=== PATIENT | female | born 1990 | race Caucasian/White ===

== ENCOUNTER → 2024-08-15 10:51 | Outpatient (REF) | payer OTHER, SELFPAY | LOC: PNTC 10:51 | PROVIDERS: ATTENDING PHYSICIAN Student in an Organized Health Care Education/Training Program | DX: O36.8190 Decreased fetal movements, unspecified trimester, not applicable or unspecified (principal) | CPT/HCPCS: 59025; 76815 ==

== ENCOUNTER → 2024-09-13 10:25 | Outpatient (REF) | payer OTHER, SELFPAY | LOC: REG 10:25 | PROVIDERS: ATTENDING PHYSICIAN Obstetrics & Gynecology | DX: Z01.812 Encounter for preprocedural laboratory examination (principal) | CPT/HCPCS: 36415; 86850; 86900; 86901 ==

== ENCOUNTER 2024-09-29 23:31 | Inpatient (IN) | payer OTHER, SELFPAY ==
[2024-09-29 23:52] VITALS: BP 138/77; BMI 33.7
[2024-09-30 00:52] LABS: ALT (SGPT) 30 U/L (0-35); AST (SGOT) 45 U/L (14-36); Albumin 3.7 g/dl (3.5-5.0); Alkaline Phosphatase 177 U/L (38-126); Blood Urea Nitrogen 18 mg/dl (7-17); Calcium 9.7 mg/dl (8.4-10.2); Carbon Dioxide 19 mmol/L (22-30); Chloride 107 mmol/L (98-107); Estimated Creatinine Clearance 93 ml/min; Glucose 100 mg/dl (70-99); Potassium 4.1 mmol/L (3.5-5.1); Sodium 135 mmol/L (135-145); Total Bilirubin 0.3 mg/dl (0.2-1.3); Total Protein 6.5 g/dl (6.3-8.2); eGFR > 60.00
[2024-09-30 01:04] LABS: Hematocrit 39.8 % (37.0-47.0); Mean Corp Hgb Conc. 35.2 g/dL (33.0-37.0); Mean Corpuscular Hgb 33.8 pg (27.0-31.0); Mean Corpuscular Volume 96.1 fL (81.0-99.0); Mean Platelet Volume 10.7 fL (7.4-10.4); Platelet Count 222 10^3/uL (130-400); Red Blood Cell Count 4.14 10^6/uL (4.20-5.40); Red Cell Dist. Width 13.1 % (11.5-14.5); White Blood Cell Count 12.3 10^3/uL (4.8-10.8)
[2024-09-30 01:56] LABS: Protein/creatinine Ratio 0.1; Urine Protein 10 mg/dl
[2024-09-30] MEDS: FENTANYL/BUPIVACAINE 100 EPIDURAL ×2 (05:39→13:40)
[2024-09-30] MEDS: SUBLIMAZE 100 MCG EPIDURAL (05:39)
[2024-09-30] MEDS: PENICILLIN 110 UNITS IV (06:02)
[2024-09-30] MEDS: PENICILLIN 55 UNITS IV ×2 (10:12→16:15)
[2024-09-30] MEDS: PITOCIN 30 UNITS/NSS 500 ML IV (11:10)
[2024-09-30] MEDS: LR 1000 IV (11:10)
[2024-10-01 05:50] LABS: Hematocrit 36.2 % (37.0-47.0); Hemoglobin 12.4 g/dL (12.0-16.0)
[2024-10-01 06:04] LABS: ALT (SGPT) 24 U/L (0-35); AST (SGOT) 47 U/L (14-36)
[2024-10-01] MEDS: SENOKOT-S 1 TABLET PO (12:48)
[2024-10-01] MEDS: TYLENOL 650 MG PO ×2 (12:48→17:54)
[2024-10-01] MEDS: PRENATAL PLUS 1 TABLET PO (12:48)
[2024-10-02] MEDS: MOTRIN 600 MG PO (08:45)
[2024-10-02] MEDS: SENOKOT-S 1 TABLET PO (08:45)
[2024-10-02] MEDS: PRENATAL PLUS 1 TABLET PO (08:45)
[2024-10-03 15:43] LABS: Syphilis/T. pallidum Ab Reflex Negative (Negative)
== END 2024-10-02 12:20 | disposition home or self-care (01) | DRG 807 ==
LOC: LDRP 23:31
PROVIDERS: Student in an Organized Health Care Education/Training Program; ADMITTING PHYSICIAN Obstetrics & Gynecology; FAMILY PHYSICIAN Family Medicine
PROC: 10E0XZZ Delivery of Products of Conception, External Approach (ICD-10-PCS; 2024-09-30)
PROC: 10907ZC Drainage of Amniotic Fluid, Therapeutic from Products of Conception, Via Natural or Artificial Opening (ICD-10-PCS; 2024-09-30)
PROC: 0HQ9XZZ Repair Perineum Skin, External Approach (ICD-10-PCS; 2024-09-30)
DX: O99.824 Streptococcus B carrier state complicating childbirth (principal); Z37.0 Single live birth; Z3A.39 39 weeks gestation of pregnancy; O70.0 First degree perineal laceration during delivery; O77.0 Labor and delivery complicated by meconium in amniotic fluid
CPT/HCPCS: 88307; 80053; 82570; 84156; 84450; 84460; 85014; 85018; 85027; 86780; 86850; 86900; 86901